=== PATIENT | male | born 1965 | race Two or more races ===

== ENCOUNTER 2021-07-26 13:25 | Outpatient (CLI) | payer OTHER | END 2021-07-26 13:26 | disposition home or self-care (01) | LOC: NUCLEAR 13:25 | PROVIDERS: ATTEND Internal Medicine Sports Medicine | DX: C73 Malignant neoplasm of thyroid gland (principal) | CPT/HCPCS: 79005; A9517 ==

== ENCOUNTER → 2021-08-02 | Outpatient (CLI) | payer OTHER | END | disposition home or self-care (01) | LOC: NUCLEAR 13:00 | PROVIDERS: ATTEND Internal Medicine Sports Medicine | DX: C73 Malignant neoplasm of thyroid gland (principal) | CPT/HCPCS: 78018; A9548 ==

== ENCOUNTER → 2022-01-24 | Outpatient (CLI) | payer OTHER | END | disposition home or self-care (01) | LOC: NUCLEAR 13:00 | PROVIDERS: ATTEND Internal Medicine Sports Medicine | DX: C73 Malignant neoplasm of thyroid gland (principal) | CPT/HCPCS: 79005; A9517 ==

== ENCOUNTER → 2022-01-31 13:05 | Outpatient (CLI) | payer OTHER | END | disposition home or self-care (01) | LOC: NUCLEAR 13:00 | PROVIDERS: ATTEND Internal Medicine Sports Medicine | DX: C73 Malignant neoplasm of thyroid gland (principal) | CPT/HCPCS: 79005; A9530 ==